=== PATIENT | male | born 2000 | race Caucasian/White ===

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

== ENCOUNTER 2019-02-25 06:45 | Emergency (ER) | payer OTHER ==
[~2019-02-25] VITALS: Ht 180.3 cm; Wt 110.7 kg
[2019-02-25 06:49] VITALS: Ht 180.3 cm; Wt 110.7 kg
[2019-02-25 07:38] LABS: BASOPHIL % 0.3 % (0-2); PLATELET COUNT 266 x10^3mcL (130-400); RED CELL DISTRIBUTION WIDTH 12.4 % (11.5-14.5)
[2019-02-25 07:40] LABS: CALCIUM 8.7 mg/dL (8.5-10.1); CARBON DIOXIDE 29.1 mmol/L (21-32); CHLORIDE SERUM 104 mmol/L (98-107); CREATININE SERUM 0.7 mg/dL (0.7-1.3); GFR1 > 60 mL/min; GLUCOSE SERUM 93 mg/dL (74-106); SODIUM SERUM 140 mmol/L (136-145)
[2019-02-25 07:44] LABS: ALBUMIN 4.1 g/dL (3.4-5.0); ALKALINE PHOSPHATASE 193 U/L (46-116); ALT/SGPT 59 U/L (16-63); AST/SGOT 21 U/L (15-37); TOTAL PROTEIN, SERUM 7.6 g/dL (6.4-8.2)
[2019-02-25 08:24] VITALS: BP 129/70
== END 2019-02-25 08:24 | disposition home or self-care (01) ==
LOC: ED 06:45
PROVIDERS: Emergency Medicine
DX: R07.89 Other chest pain (principal)
CPT/HCPCS: 36415; Q0092

== ENCOUNTER 2019-03-02 01:17 | Emergency (ER) | payer OTHER ==
[~2019-03-02] VITALS: Ht 180.3 cm; Wt 110.2 kg
[2019-03-02 01:28] VITALS: Ht 180.3 cm; Wt 110.2 kg
[2019-03-02 02:19] VITALS: BP 151/87
== END 2019-03-02 02:19 | disposition home or self-care (01) ==
LOC: ED 01:17
DX: S16.1XXA Strain of muscle, fascia and tendon at neck level, initial encounter (principal); R51 Headache; X58.XXXA Exposure to other specified factors, initial encounter; Y93.89 Activity, other specified; Y92.89 Other specified places as the place of occurrence of the external cause; Y99.8 Other external cause status
CPT/HCPCS: J1885

== ENCOUNTER 2019-03-06 15:43 | Emergency (ER) | payer OTHER ==
[~2019-03-06] VITALS: Ht 180.3 cm; Wt 108.5 kg
[2019-03-06 16:14] VITALS: BP 159/95; Ht 180.3 cm; Wt 108.5 kg
== END 2019-03-06 17:51 | disposition home or self-care (01) ==
LOC: ED 15:43
DX: R51 Headache (principal)
CPT/HCPCS: J1885

== ENCOUNTER 2019-03-11 15:51 | Emergency (ER) | payer OTHER ==
[~2019-03-11] VITALS: Ht 180.3 cm; Wt 107.0 kg
[2019-03-11 15:58] VITALS: Ht 180.3 cm; Wt 107.0 kg
[2019-03-11 18:54] LABS: BASOPHIL % 0.4 % (0-2); CALCIUM 8.7 mg/dL (8.5-10.1); CARBON DIOXIDE 26.9 mmol/L (21-32); CHLORIDE SERUM 104 mmol/L (98-107); CREATININE SERUM 0.7 mg/dL (0.7-1.3); GFR1 > 60 mL/min; GLUCOSE SERUM 78 mg/dL (74-106); PLATELET COUNT 248 x10^3mcL (130-400); POTASSIUM SERUM 3.8 mmol/L (3.5-5.1); RED CELL DISTRIBUTION WIDTH 13.6 % (11.5-14.5); SODIUM SERUM 141 mmol/L (136-145)
[2019-03-11 18:59] LABS: ALBUMIN 4.4 g/dL (3.4-5.0); ALKALINE PHOSPHATASE 198 U/L (46-116); ALT/SGPT 48 U/L (16-63); AST/SGOT 15 U/L (15-37); BILIRUBIN TOTAL 0.23 mg/dL (0.20-1.00); TOTAL PROTEIN, SERUM 7.8 g/dL (6.4-8.2)
[2019-03-11 19:47] LABS: AMPHETAMINE QUAL UR NONE DETECTED (See below)
[2019-03-11 20:41] VITALS: BP 134/85
== END 2019-03-11 20:41 | disposition home or self-care (01) ==
LOC: ED 15:51
PROVIDERS: Emergency Medicine
DX: R07.89 Other chest pain (principal); G44.209 Tension-type headache, unspecified, not intractable
CPT/HCPCS: 36415; 85378; Q0092

== ENCOUNTER 2019-03-14 07:21 | Emergency (ER) | payer OTHER ==
[~2019-03-14] VITALS: Ht 180.3 cm; Wt 105.2 kg
[2019-03-14 08:04] VITALS: BP 143/76
== END 2019-03-14 08:04 | disposition home or self-care (01) ==
LOC: ED 07:21
DX: F41.9 Anxiety disorder, unspecified (principal)

== ENCOUNTER 2019-04-17 12:19 | Emergency (ER) | payer OTHER ==
[~2019-04-17] VITALS: Ht 182.9 cm; Wt 107.0 kg
[2019-04-17 12:40] VITALS: BP 141/61; Ht 182.9 cm; Wt 107.0 kg
== END 2019-04-17 14:26 | disposition home or self-care (01) ==
LOC: ED 12:19
DX: R51 Headache (principal)

== ENCOUNTER 2019-09-23 07:50 | Emergency (ER) | payer OTHER ==
[~2019-09-23] VITALS: Ht 182.9 cm; Wt 115.2 kg
[2019-09-23 07:56] VITALS: Ht 182.9 cm; Wt 115.2 kg
[2019-09-23 10:43] VITALS: BP 140/84
== END 2019-09-23 10:43 | disposition home or self-care (01) ==
LOC: ED 07:50
DX: R07.89 Other chest pain (principal)
CPT/HCPCS: Q0092